=== PATIENT | female | born 1980 | race Caucasian/White ===

== ENCOUNTER 2018-09-09 01:06 | Outpatient (CLI) | payer MEDICAID, SELFPAY ==
--- NOTE | 2018-09-09 11:30 | DI.MAMMO_ITS ---
SYMPTOM/DIAGNOSIS: SCREENING Z12.31 FAMILY H/O BREAST CA BILATERAL SCREENING MAMMOGRAM Mammograms were interpreted according to the usual protocol including computer analysis with CAD system, tomosynthesis and C view imaging. This is a baseline examination. The breasts are composed of heterogeneously dense fibroglandular tissue, breast density category C. On the MLO view in the upper breast, there are areas of increased nodular densities which may represent overlying fibroglandular tissue. Spot compression view is requested for further evaluation. No abnormalities seen in the right breast. No suspicious calcifications in either breast. IMPRESSION: Right breast Category 1-C, negative. Left breast Category 0. Spot compression view and ultrasound requested for further evaluation of superior densities in the left breast MQSA ASSESSMENT OF FINDINGS: Incomplete: Needs additional imaging evaluation. Category 0. Patient will receive a letter notifying them of these results. Bi-RADS category C. The breasts are heterogeneously dense, which may obscure small masses.
== END 2018-09-09 01:26 ==
PROVIDERS: PCP Neuromusculoskeletal Medicine & OMM; Visit Provider Nurse Practitioner Family
DX: Z12.31 Encounter for screening mammogram for malignant neoplasm of breast (principal); Z80.3 Family history of malignant neoplasm of breast; R92.8 Other abnormal and inconclusive findings on diagnostic imaging of breast
CPT/HCPCS: 77063; 77067

== ENCOUNTER 2018-09-19 01:50 | Outpatient (CLI) | payer MEDICAID, SELFPAY ==
--- NOTE | 2018-09-19 10:57 | DI.COMBO_ITS ---
SYMPTOM/DIAGNOSIS: F/U ABNL MAMMO, INCREASED NODULAR DENSITIES ADDITIONAL MAMMOGRAPHIC VIEWS, LEFT BREAST, AND LEFT BREAST ULTRASOUND: Additional mammographic views of the left breast and a left breast ultrasound were interpreted in conjunction. These examinations are obtained for a questionable area of asymmetric density of superior portion of the left breast noted on MLO view of recent mammogram. Additional mammographic views fail to show a discrete mass. Breast ultrasound shows no evidence of a mass or cyst. SUMMARY: No evidence of malignancy, however follow-up unilateral left breast mammogram and if appropriate, ultrasound, are suggested in 6 months for further review. Category 3. Breast density, Category C. MQSA ASSESSMENT OF FINDINGS: Probably benign. Six month follow-up recommended. Category 3. Patient will receive a letter notifying them of these results. Bi-RADS category C. The breasts are heterogeneously dense, which may obscure small masses.
== END 2018-09-19 02:10 ==
PROVIDERS: PCP Neuromusculoskeletal Medicine & OMM; Visit Provider Nurse Practitioner Family
DX: Z12.31 Encounter for screening mammogram for malignant neoplasm of breast (principal); R92.8 Other abnormal and inconclusive findings on diagnostic imaging of breast; N64.59 Other signs and symptoms in breast
CPT/HCPCS: 76642; 77063; 77067

== ENCOUNTER 2021-01-14 16:24 | Outpatient (REF) | payer OTHER, SELFPAY ==
--- NOTE | 2021-01-14 16:00 | PAPFT_PTH ---
PATIENT: Lissy Mcdonald LOC: [facility] U#:[id number] AGE/SX: 40/F ROOM: RE01/14/[address]: JENNI Steel : 1980 BED: DIS: 01/14/2021 SPEC #: [id number] RECD: 01/14/21 16:56 STATUS: KEL REQ #: [id number] SUKHWINDER: 01/14/21 16:[address]: Jonelle Damon DEPT: [facility] Cytology RECD BY: Marya Lara ENTERED: 01/14/21 16:56 SP TYPE: PAPFT OTHR DR: Dave Horner Tissues: 1 - CX/ENDOCX FOR PAP SMEARS Procedures: PAP THIN PREP/UVM Screening HPV DNA PROBE Comments: [id number]
[2021-01-17 14:41] LABS: Chlamydia Result Negative (Negative); GC Result Negative (Negative)
== END 2021-01-14 16:25 | disposition home or self-care (01) ==
LOC: LBN 16:24
PROVIDERS: PCP Neuromusculoskeletal Medicine & OMM; Visit Provider Nurse Practitioner Family
DX: Z20.2 Contact with and (suspected) exposure to infections with a predominantly sexual mode of transmission (principal); Z11.3 Encounter for screening for infections with a predominantly sexual mode of transmission; Z12.4 Encounter for screening for malignant neoplasm of cervix; Z11.51 Encounter for screening for human papillomavirus (HPV)
CPT/HCPCS: 87491; 87591; 88142; 87624

== ENCOUNTER 2021-01-24 02:21 | Outpatient (CLI) | payer OTHER, SELFPAY ==
--- NOTE | 2021-01-24 16:01 | DI.MAMMO_ITS ---
EXAM: MG MAMMO SCREENING CLINICAL HISTORY: screening,z12.39. TECHNIQUE: Bilateral full field digital CC and MLO mammographic images were obtained with 3D tomosyn thesis and utilizing computer aided detection (CAD). COMPARISON: Prior baseline mammogram of August 2018 FINDINGS: The fibroglandular tissue is moderately dense, this decreasing the sensitivity of the mammogram for f inding hidden underlying lesions. In the medial aspect of the left breast there is an asymmetric density located 6 cm in from the nippl e which measures approximately 10 x 10 millimeters. Spot compression views recommended. In the opposite-right breast there is also an asymmetric density located medially measuring approxima tely 8 x 5 millimeters and located 7 cm in from the nipple. This also requires spot compression view s. No malignant-appearing microcalcification groups in this region or elsewhere in either breast. There is no significant architectural distortion nor skin thickening-retraction. IMPRESSION: Moderately dense fibroglandular tissue. Asymmetric densities noted in the medial aspects of both obinna asts. Recommend spot compression views of both breasts and bilateral complete breast ultrasound. Th is patient should undergo bilateral complete breast ultrasound given the above findings, the density of her fibroglandular tissue, and the fact that this patient's mother was diagnosed with breast cance r twice, 1st time at age 39 BI-RADS Category 0 - Assessment Incomplete: Need additional imaging evaluation Breast Density - Category C - Heterogeneously dense Breast density Category C or D implies that the patient has dense breast tissue. Dense breast tissue can make it harder to find cancer on a mammogram. Dense breast tissue is also associated with an incr eased risk of breast cancer. This information about the result of the mammogram report was provided to the patient to raise their awareness. Use this report when you speak with the patient about their risks for breast cancer, which includes their family history. At that time, you may recommend additional screening tests (Ultrasoun d or MRI) as these tests may add significant information. A negative radiographic report should not delay biopsy if a dominant or clinically suspicious mass is present. Up to ten percent of cancers are not identified on mammography. A negative report may reinforce clinical impression. Adenosis and dense breasts may obscure an underlying neoplasm. False positive reports average 6 to 10%. Patient will receive a letter notifying them of these results.
== END 2021-01-24 02:41 ==
PROVIDERS: PCP Neuromusculoskeletal Medicine & OMM; Visit Provider Nurse Practitioner Family
DX: Z12.31 Encounter for screening mammogram for malignant neoplasm of breast (principal); R92.8 Other abnormal and inconclusive findings on diagnostic imaging of breast; Z80.3 Family history of malignant neoplasm of breast
CPT/HCPCS: 77063; 77067

== ENCOUNTER 2021-02-02 01:39 | Outpatient (CLI) | payer OTHER, SELFPAY ==
--- NOTE | 2021-02-02 | DI.US_ITS ---
Exam(s) US BREAST LT COMPLETE US BREAST RT COMPLETE MG MAMMO SCREEN CALL BACK BI EXAM: MG MAMMO SCREEN CALL BACK BI and bilateral U/S breast complete CLINICAL HISTORY: F/U MAMMO, LT BREAST ASYMMETRIC DENSITY,,RT BREAST ASYMMETRIC DENSITY. TECHNIQUE: Craniocaudal and mediolateral oblique Full Field Digital Mammography views of the bilater al breast with Computer Aided Diagnosis followed by Tomosynthesis and bilateral breast ultrasound. COMPARISON: Comparison with prior examinations. FINDINGS: Mammography/Tomosynthesis: Masses/Architectural Distortion: None seen. Microcalcifictions: No suspicious pleomorphic-type are seen. Skin Thickening/Nipple Retraction: None. Bilateral breast US: Bilateral complete breast ultrasounds were performed. Echotexture: Normal appearance of the glandular tissue. Shadowing: No suspicious foci. Cyst: There is a 0.6 x 0.4 x 0.5 cm cyst at the 3 o'clock position of the left breast 2 cm from the n ipple. Solid lesions: None seen. Ductal dilation: None. IMPRESSION: 1. No evidence of malignancy is noted. 2. Unless there is more urgent need, follow-up screening mammography is recommended, as per [place] [employer] guidelines. 3. The findings were discussed with the patient on the date of the examination. BI-RADS Category 1 - Negative Breast Density - Category C - Heterogeneously dense Breast density Category C or D implies that the patient has dense breast tissue. Dense breast tissue can make it harder to find cancer on a mammogram. Dense breast tissue is also associated with an incr eased risk of breast cancer. This information about the result of the mammogram report was provided to the patient to raise their awareness. Use this report when you speak with the patient about their risks for breast cancer, which includes their family history. At that time, you may recommend additional screening tests (Ultrasoun d or MRI) as these tests may add significant information. A negative radiographic report should not delay biopsy if a dominant or clinically suspicious mass is present. Up to ten percent of cancers are not identified on mammography. A negative report may reinforce clinical impression. Adenosis and dense breasts may obscure an underlying neoplasm. False positive reports average 6 to 10%. Patient will receive a letter notifying them of these results.
== END 2021-02-02 01:59 ==
PROVIDERS: PCP Neuromusculoskeletal Medicine & OMM; Visit Provider Neuromusculoskeletal Medicine & OMM
DX: Z12.31 Encounter for screening mammogram for malignant neoplasm of breast (principal); R92.8 Other abnormal and inconclusive findings on diagnostic imaging of breast; N60.02 Solitary cyst of left breast; N60.81 Other benign mammary dysplasias of right breast
CPT/HCPCS: 76642; 77063; 77067

== ENCOUNTER 2021-02-21 01:57 | Outpatient (CLI) | payer OTHER, SELFPAY ==
[2021-02-21 11:46] LABS: Source Nasal/Nares
[2021-02-21 21:03] LABS: COVID-19 PCR Negative (Negative)
== END 2021-02-21 01:58 | disposition home or self-care (01) ==
LOC: LBO 01:58
PROVIDERS: PCP Neuromusculoskeletal Medicine & OMM; Visit Provider Obstetrics & Gynecology
DX: Z20.822 Contact with and (suspected) exposure to COVID-19 (principal); Z01.818 Encounter for other preprocedural examination
CPT/HCPCS: 87635

== ENCOUNTER 2021-02-21 10:54 | Outpatient (CLI) | payer OTHER, SELFPAY ==
[2021-02-21 12:07] LABS: Abs Immature Grans 0.14 10^3/uL (0.0-0.06); Absolute Basophil Count 0.06 10^3/uL (0.0-0.2); Absolute Eosinophil Count 0.24 10^3/uL (0.0-0.7); Absolute Lymphocyte Count 2.42 10^3/uL (1.2-3.4); Absolute Monocyte Count 0.64 10^3/uL (0.1-0.8); Absolute Neutrophil Count 5.28 10^3/uL (1.2-6.7); Basophils % 0.7; Eosinophils % 2.7; HCT 37.2 % (36.0-46.0); HGB 12.7 g/dL (11.2-15.7); Immature Grans % 1.6; Lymphocytes % 27.6; MCH 31.1 pg (27.0-33.0); MCHC 34.1 % (32.0-36.0); MPV 10.3 fL (8.0-11.0); Monocytes % 7.3; Neutrophils % 60.1; Nucleated RBC 0 %; Platelet Count 302 10^3/uL (130-400); RBC 4.09 10^6/uL (3.93-5.22); RDW 12.7 % (11.7-14.6); RDW-SD 42.1 fL; WBC 8.78 10^3/uL (4.4-10.8)
== END 2021-02-21 10:55 | disposition home or self-care (01) ==
LOC: LBO 10:55
PROVIDERS: Obstetrics & Gynecology; PCP Neuromusculoskeletal Medicine & OMM; Visit Provider Student in an Organized Health Care Education/Training Program
DX: D25.9 Leiomyoma of uterus, unspecified (principal); Z01.818 Encounter for other preprocedural examination; Z01.812 Encounter for preprocedural laboratory examination
CPT/HCPCS: 36415; 86850; 86900; 86901; 85025

== ENCOUNTER 2021-02-23 06:14 | Inpatient (IN) | payer OTHER, SELFPAY ==
[2021-02-23] VITALS (24 sets, daily range): BP systolic 103–122; BP diastolic 54–82; PULSE 69–94; RESP 9–20; TEMP 36.2–37.8; O2SAT 95–100; BMI 32.0
--- NOTE | 2021-02-23 07:03 | W.ANESPRE ---
General Info Date of Service Date Performed: 02/23/21 Height: 5 ft 5 in Weight: 87.3 kg Body Mass Index (BMI): 32.0 Surgical Procedure: Operation Date: 02/23/21 07:40 Proposed Procedures Side Surgeon p Hysterectomy Vaginal Laparoscopic Assist, RHODA SALPINGECTOMY, POSSIBLE VIC, CYSTO Nubia DO [place] Meds Allergies and Home Medications Allergies Allergy/AdvReac Type Severity Reaction Status Date / Time acetaminophen [From Vicodin] Allergy Severe Hives Unverified 02/23/21 06:32 gluten Allergy Severe Other (See Verified 02/23/21 06:34 Comment) hydrocodone bitartrate Allergy Severe Hives Unverified 02/23/21 06:32 [From Vicodin] Home Medication Medication Instructions Recorded trazodone 50 mg PO HS PRN 07/26/16 Buspirone HCl 5 mg PO BID tab-cap 10/22/17 acetaminophen 1,000 mg PO PRN PRN 02/19/18 escitalopram oxalate 20 mg tablet 20 mg PO DAILY 01/14/21 vitamin B complex 1 tab PO DAILY 01/14/21 clonazepam 0.5 mg tablet 0.5 mg PO DAILY PRN tab 02/15/21 Current Visit Medications: Current Medications Generic Name Dose Route Start Last Admin Trade Name Freq PRN Reason Stop Dose Admin Ringer's Solution 1,000 mls @ 125 mls/hr 02/23/21 06:00 IV 03/24/21 23:59 INFUSION MIKHAIL Cefazolin Sodium/Dextrose 2 gm in 50 mls @ 100 mls/hr 02/23/21 06:00 Ancef Duplex IVPB 02/23/21 16:00 PREOP MIKHAIL IV Miscellaneous Supplies 1 each 02/23/21 06:00 Iv Access IV 03/24/21 23:59 DIRECTED MIKHAIL Sodium Chloride 0 ml 02/23/21 06:00 Normal Saline Flush 10 Ml Syr IV 03/24/21 23:59 PRN PRN Sodium Chloride 0 ml 02/23/21 06:00 Normal Saline 10 Ml Vial IJ 03/24/21 23:59 DIRECTED PRN Sterile Water 0 ml 02/23/21 06:00 Water,Injection,Sterile 10 Ml Vial IJ 03/24/21 23:59 DIRECTED PRN Allergy/Medication Comments:: Patient tolerates Tylenol and takes as needed at home without issues, reports sensitivity to hydrocodone PFSH Active Problems Active Problems: Problem Status Onset Code Family history of breast cancer 10/22/17 Z80.3 Celiac disease 10/22/17 K90.0 Anxiety 10/22/17 F41.9 Fibromyalgia M79.7 Abnormal uterine bleeding N93.9 Fibroid uterus D25.9 Medical History Medical History Abnormal uterine bleeding Fibroid uterus Fibromyalgia Panic disorder per pt. Surgical History Surgical History (Updated 02/23/21 @ 06:38 by Samreen Cortez) Hx of wisdom tooth extraction Tobacco Smoking/Tobacco Use Status: Never Alcohol Alcohol Intake: current Alcohol intake frequency: a few times a week Alcohol type: wine Substance Use Substance use: Daily Substance use type: marijuana Details: marijuana: t-1, half of a joint. alcohol: t-1 Vital Signs and Lab Results Vital Signs Most Recent Vital Signs in EMR: Most Recent Vital Signs Temp Pulse Resp BP Pulse Ox 36.7 C 79 16 117/82 98 02/23/21 06:42 02/23/21 06:42 02/23/21 06:42 02/23/21 06:42 02/23/21 06:42 Lab Results Blood Type / Crossmatch: Patient ABO/Rh O Positive 02/21/21 11:14 02/21/21 Antibody Screen Negative 02/21/21 11:14 02/21/21 Complete Blood Count: White Blood Count 8.78 10^3/uL (4.4-10.8) 02/21/21 11:14 02/21/21 Red Blood Count 4.09 10^6/uL (3.93-5.22) 02/21/21 11:14 02/21/21 Hemoglobin 12.7 g/dL (11.2-15.7) 02/21/21 11:14 02/21/21 Hematocrit 37.2 % (36.0-46.0) 02/21/21 11:14 02/21/21 Platelet Count 302 10^3/uL (130-400) 02/21/21 11:14 02/21/21 Complete Metabolic Panel: No Data to Display Liver Function Panel: No Data to Display Coagulation Panel: No Data to Display Cardiac Panel: No Data to Display Arterial Blood Gas: No Data to Display Venous Blood Gas: No Data to Display Pancreas Panel: No Data to Display Thyroid Panel: No Data to Display Infectious Disease: Coronavirus (COVID-19)(PCR) Negative (Negative) 02/21/21 09:58 02/21/21 Coronavirus 2019 Source Nasal/nares 02/21/21 09:58 02/21/21 Blood Cultures: No Data to Display Toxicology Panel: No Data to Display Panel: No Data to Display Anesthesia Assessment and Plan Anesthesia History Personal History: No History of Anesthesia Complications Family History: No Family History of Anesthesia Complications Exercise Tolerance Exercise Tolerance: Metabolic Equivalents>4 Pertinent Negatives Pertinent Negatives: No Symptoms of GERD, No Major Cardiovascular Symptoms or Complaints, No Major Pulmonary Symptoms or Complaints (Childhood asthma +snores ) and No History of CVA/TIA Cardiac & Pulmonary Exam Cardiac Exam: Normal S1/S2 Heart Sounds Pulmonary Exam: Clear Bilateral Breath Sounds Airway Exam Known Difficult Airway: No Mallampati Class: 4 Mouth Opening: Normal (> 3cm) Thyromental Distance: Less than 3 cm Neck Range of Motion: Full ROM and Other (Patient reports moderate discomfort turning head [id number], follows up with physical therapy) Neck Circumference: Normal Teeth Condition: Normal Dentition ASA Classification ASA Score: ASA 2 Emergency Case?: No NPO Status NPO Status: NPO Clears >2 hours, Solids >8 hours Status Status: Negative HCG Anesthesia Plan Resuscitation Status: Full Code Anesthesia Technique: General Anesthesia Airway Planned: Endotracheal Tube Pain Management: Intrathecal Analgesia Monitors Used: Standard Monitors
[2021-02-23] MEDS: Lactated Ringers 1,000 ML 125 ML IV ×3 (07:05→16:38)
[2021-02-23] MEDS: ceFAZolin 2 GM/50 ML BAG IVPB (08:09)
[2021-02-23] MEDS: Bupivacaine 0.5% Pres-Free 30 ML VIAL (08:30)
--- NOTE | 2021-02-23 09:36 | UTER_PTH ---
PATIENT: Lissy Mcdonald LOC: U#:[id number] AGE/SX: 40/F ROOM: 216 RE02/23/[address]: Nubia Coburn DO : 1980 BED: A DIS: 02/25/2021 SPEC #: [id number] RECD: 02/23/21 11:50 STATUS: SOUT REQ #: [id number] SUKHWINDER: 02/23/21 09:[address]: Nubia Coburn DEPT: Surgical Specimen RECD BY: Marya Lara ENTERED: 02/23/21 11:51 SP TYPE: UTER OTHR DR: Dave Horner Tissues: 1 - UTERUS W OR W/O OVARIES(NOT TUMOR/PROLAPSE) Procedures: GROSS AND MICRO LEVEL 5 Comments: [id number]
--- NOTE | 2021-02-23 10:18 | W.PM.OP ---
Date of service: 02/23/21 Time of Service: 10:18 Operative Note Operative Note DATE OF PROCEDURE: 02/23/21 PRE-OP DIAGNOSIS: Symptomatic fibroid uterus, 16 to 18 weeks size PROCEDURE: Exam under anesthesia, total abdominal hysterectomy with bilateral salpingectomy SURGEON: Nubia Coburn REFINERY OPERATOR HELPER CRUDE UNIT: Shaunna Sanchez ANESTHESIA TYPE: General LMA/ETT and Spinal Refer to Anesthesia Record ESTIMATED BLOOD LOSS: 200 PATHOLOGY: other (Uterus, cervix, bilateral fallopian tube) COMPLICATIONS: None Patient was transported to: PACU Patient's condition: stable Indications: Symptomatic fibroid uterus Findings: Normal-appearing ovaries, normal-appearing fallopian tubes, 16 to 18-week size bulky fibroid uterus with multiple submucosal, and intramural fibroids Procedure Description: Patient was taken to the operating room with an IV running. She was placed in the seated position and spinal anesthesia administered for postoperative pain management. She was then placed in dorsal supine position and endotracheal intubation performed per anesthesia with ease. At this point exam under anesthesia was performed and uterus was found to be approximately 3 cm below the umbilicus, with minimal descent in a relaxed state. Due to this fact, the decision was made to perform a total abdominal hysterectomy rather than laparoscopic approach due to the size and poor descent. At this point she was placed in the dorsal supine position and after vaginal prep and Malloy catheter was inserted, patient was prepped and draped in the usual sterile fashion. Infiltration of half percent Marcaine along the Pfannenstiel skin incision site was performed with 20 mL of local anesthetic. A Pfannenstiel skin incision was made and carried down to the underlying fascia. The fascia was then incised in a transverse direction and fascia peeled away from the rectus muscles. The rectus muscles were identified split in the midline and . The peritoneum was then identified tented up and entered sharply and the peritoneal incision was then extended superiorly and inferiorly. This allowed exposure of the abdominal contents and bulky fibroid uterus. Uterus was found to be significantly enlarged. Fallopian tubes and ovaries were normal. At this point the uterus was elevated out of the pelvis and attention turned to the left round ligament which was suture-ligated and transected allowing access to the retroperitoneal space. The bladder flap was created anteriorly with sharp meticulous dissection. The left fallopian tube was then transected and suture-ligated allowing to fall away from the ovary. The utero-ovarian ligament was then identified, transected and suture ligated. Similar procedure was carried out on the right round ligament exposing the right retroperitoneal space. Bladder flap was continued and bladder pushed well below the circumflex. Right fallopian tube was then transected and suture-ligated and the right ovarian ligament was also transected and suture ligated. In a systematic fashion uterine arteries were identified, clamped, transected and ligated and found to be hemostatic. After uterine pedicles were cleared away from the lower uterine segment the anterior vaginal endopelvic fascia was elevated and entered sharply. With Zeppelin clamps the cervical vaginal interface was clamped, transected, and ligated. This allowed delivery of the uterus, cervix, and bilateral fallopian tubes. The vaginal cuff was then closed using 0 Vicryl suture in a running locked fashion. There is one area at the left corner that was not hemostatic which was suture-ligated. The abdomen was then irrigated with copious amounts of normal saline and all pedicles inspected and found to be hemostatic. At this point all instrumentation was removed and fascial incision closed using 0 Vicryl suture. Subcutaneous tissue was irrigated with copious amounts of normal saline. Subcutaneous tissue reapproximated with 3-0 Vicryl suture in a simple interrupted fashion. Skin incision was closed using 4-0 Monocryl in a subcuticular fashion and Steri-Strips and sterile dressing were placed. Patient awoke from anesthesia with ease and was taken to recovery room in stable condition with a Malloy catheter draining very mildly blood-tinged urine. Complications: None apparent EBL: 200 mL Pathology: Uterus, cervix, bilateral fallopian tubes for examination Drains: Malloy catheter in place
[2021-02-23] MEDS: Albuterol/Ipratropium 3 ML UPD VIAL (10:30)
[2021-02-23] MEDS: Naloxone 0.4 MG/ML VIAL IVP ×2 (11:30→11:36)
--- NOTE | 2021-02-23 12:06 | W.ANESPOSTOP ---
Postoperative Evaluation Date, Time and Location Date Performed: 02/23/21 Time Performed: 12:06 Patient Location: PACU Vital Signs Most Recent Imported Vital Signs: Most Recent Vital Signs Temp Pulse Resp BP Pulse Ox 36.5 C 74 9 L 112/61 99 02/23/21 11:54 02/23/21 11:54 02/23/21 11:54 02/23/21 11:54 02/23/21 11:54 Pain Score Most Recent Pain Score: Most Recent Pain Score Pain Level [Abdomen] 1 02/23/21 10:45 Pain Level 8 02/23/21 11:54 Assessment Mental Status: Awake (Alert & Oriented to Patient Baseline) Airway and Respiratory Function: Patent airway with normal (patient baseline) respiratory exam Cardiovascular Function: Hemodynamically Stable Hydration Status: Adequately Hydrated Nausea & Vomiting: No Nausea or Vomiting Pain: Pain is Moderate or Severe (IV Tylenol intitiated prior to transfer to floor.) Postoperative Pain Management: Ongoing pain, patient will be managed as an inpatient Peripheral Nerve Block: Patient did not receive a nerve block
[2021-02-23] MEDS: ACETAMINOPHEN 1,000 MG/100 ML BTL 400 MG IVPB (12:10)
[2021-02-23] MEDS: diphenhydrAMINE 50 MG/ML VIAL 12.5 MG IVP (12:50)
[2021-02-23] MEDS: diphenhydrAMINE 25 MG CAP PO ×2 (13:24→20:14)
[2021-02-23] MEDS: Ketorolac 30 MG/ML VIAL 15 MG IVP ×2 (15:49→21:44)
[2021-02-23] MEDS: Normal Saline Flush 10 ML SYR IV ×2 (15:50→21:45)
--- NOTE | 2021-02-23 16:08 | W.PM.PROGNOT ---
Date of Service Date of service: 02/23/21 Time of Service: 16:08 Assessment and Plan Assessment and plan (1) S/P VIC (total abdominal hysterectomy): Status: Acute Assessment and plan: Postoperative day #0 status post total abdominal hysterectomy with bilateral salpingectomy. Doing well. CBC in the morning. Malloy out in the morning. Increase activity, diet, continue incentive spirometer. Anticipate discharge home in the next 24 to 48 hours. Subjective Subjective Patient reports: no new complaints, pain is less, tolerating liquids well, tolerating a regular diet and afebrile; denies shortness of breath Interval history since last seen: Patient seen postoperative day #1. She is doing well. Surgery was discussed. Vital signs are stable. Urine output is brisk. Pain medication written for the evening. CBC ordered for the morning. Anticipate discharge in the next 24 to 48 hours. Exam Const General: cooperative, healthy appearing, comfortable and no acute distress Eyes General: appearance normal, both eyes and all related structures Neck Neck: normal visual inspection Thyroid: thyroid normal Resp Effort & Inspection: normal respiratory effort Cardio Rate: regular rate Rhythm: regular rhythm GI Inspection: normal to inspection Palpation: not firm and no guarding Objective Last Vital Signs Temp 97.5 F L 02/23/21 15:39 Pulse 94 H 02/23/21 15:39 Resp 17 02/23/21 15:39 BP 122/65 02/23/21 15:39 Pulse Ox 97 02/23/21 15:39
[2021-02-23] MEDS: clonazePAM 0.5 MG TAB PO (18:08)
[2021-02-23] MEDS: Docusate Sodium 100 MG CAP PO (20:12)
[2021-02-23] MEDS: busPIRone 5 MG TAB PO (20:13)
[2021-02-23] MEDS: oxyCODONE 5 mg/Acetaminophen 325 mg TAB 1 TAB PO (20:14)
[2021-02-24] MEDS: Lactated Ringers 1,000 ML 125 ML IV (00:26)
[2021-02-24 02:10] VITALS: RESP 17
[2021-02-24 03:30] VITALS: RESP 18
[2021-02-24 03:33] VITALS: BP 114/70; PULSE 80; RESP 18; TEMP 37.1; O2SAT 95
[2021-02-24] MEDS: Ketorolac 30 MG/ML VIAL 15 MG IVP ×2 (04:30→11:14)
[2021-02-24 04:38] VITALS: RESP 18
[2021-02-24 07:05] VITALS: BP 132/83; PULSE 86; TEMP 36.5; O2SAT 93
[2021-02-24 07:23] LABS: Abs Immature Grans 0.04 10^3/uL (0.0-0.06); Absolute Basophil Count 0.04 10^3/uL (0.0-0.2); Absolute Eosinophil Count 0.13 10^3/uL (0.0-0.7); Absolute Lymphocyte Count 1.14 10^3/uL (1.2-3.4); Absolute Monocyte Count 0.61 10^3/uL (0.1-0.8); Absolute Neutrophil Count 6.61 10^3/uL (1.2-6.7); Basophils % 0.5; Eosinophils % 1.5; HGB 10.6 g/dL (11.2-15.7); Immature Grans % 0.5; Lymphocytes % 13.3; MCH 30.7 pg (27.0-33.0); MCHC 33.1 % (32.0-36.0); MCV 92.8 fL (80-95); MPV 10.2 fL (8.0-11.0); Monocytes % 7.1; Neutrophils % 77.1; Nucleated RBC 0 %; Platelet Count 225 10^3/uL (130-400); RBC 3.45 10^6/uL (3.93-5.22); RDW 12.5 % (11.7-14.6); RDW-SD 42.1 fL; WBC 8.57 10^3/uL (4.4-10.8)
[2021-02-24 07:37] VITALS: BP 116/77; PULSE 90; RESP 16; TEMP 37; O2SAT 96
--- NOTE | 2021-02-24 08:06 | PGE_ITS ---
Date of Service Date of service: 02/24/21 Time of Service: 08:06 Assessment and Plan Assessment and plan (1) S/P VIC (total abdominal hysterectomy): Status: Acute Assessment and plan: Postoperative day #1 status post total abdominal hysterectomy with bilateral salpingectomy. Doing well. Will increase her ambulation today. Malloy catheter out. Saline lock IV. Oral pain medication. Regular diet. Would anticipate discharge home later today, or early tomorrow based on activity levels. Encouragement given. Patient will continue to use I- S. She will continue use compression stockings while in bed, off all ambulatory. Subjective Subjective Patient reports: still having pain, tolerating a regular diet and flatus; denies diarrhea, vomiting, shortness of breath and fever Interval history since last seen: Patient seen and examined this morning. She is doing well. She is concerned about her pain and increased pain with movement. She is worried that she will somewhat injure herself, however we discussed the fact that pain is normal. Will alternate her Motrin and Percocet throughout the day today. Ambulation will be necessary. Malloy catheter will be removed and IV will be saline locked. We did review her surgical procedure yesterday. Overall, she is doing very well postoperative day #1. She is tolerating regular diet, has stable vital signs, and is passing gas Exam Const General: cooperative, healthy appearing, comfortable and no acute distress Orientation: alert and oriented x3 Eyes General: appearance normal, both eyes and all related structures Resp Effort & Inspection: normal respiratory effort Auscultation: clear to auscultation bilaterally Cardio Rate: regular rate Rhythm: regular rhythm GI Inspection: normal to inspection and incision (Clean, dry, intact. Dressing removed. Steri-Strips in place) Palpation: soft, not firm and no guarding Auscultation: normal bowel sounds Skin General skin exam: no rashes or lesions noted Extrem General: normal to inspection, no clubbing, cyanosis or edema, no calf tenderness, clubbing, cyanosis and edema Objective Last Vital Signs Temp 98.6 F 02/24/21 07:37 Pulse 90 02/24/21 07:37 Resp 16 02/24/21 07:37 BP 116/77 02/24/21 07:37 Pulse Ox 96 02/24/21 07:37 Laboratory Results - last 24 hr 05/27/21 06:03 WBC 8.57 RBC 3.45 L Hgb 10.6 L D Hct 32.0 L MCV 92.8 MCH 30.7 MCHC 33.1 RDW 12.5 Plt Count 225 MPV 10.2 Immature Gran % 0.5 Neutrophils % 77.1 Lymphocytes % 13.3 Monocytes % 7.1 Eosinophils % 1.5 Basophils % 0.5 Nucleated RBC % 0 Absolute Neutrophils 6.61 Absolute Lymphocytes 1.14 L Absolute Monocytes 0.61 Absolute Eosinophils 0.13 Absolute Basophils 0.04
[2021-02-24] MEDS: oxyCODONE 5 mg/Acetaminophen 325 mg TAB PO ×3 (08:13→22:40)
[2021-02-24] MEDS: Docusate Sodium 100 MG CAP PO ×2 (08:13→20:23)
[2021-02-24] MEDS: Escitalopram 20 MG TAB PO (08:15)
[2021-02-24] MEDS: busPIRone 5 MG TAB PO ×2 (08:15→20:22)
[2021-02-24] MEDS: clonazePAM 0.5 MG TAB PO (13:44)
--- NOTE | 2021-02-24 15:05 | CHAPLAIN ---
Lissy was resting in bed, wrapped in her own blanket. I explained my role and offered support. Lissy said she was fine and likely will go home soon.
--- NOTE | 2021-02-24 15:11 | W.PM.PROGNOT ---
Date of Service Date of service: 02/24/21 Time of Service: 15:11 Assessment and Plan Assessment and plan (1) S/P VIC (total abdominal hysterectomy): Status: Acute Assessment and plan: Postoperative day #1. Intra-abdominal wall pain. Some nausea associated. Clinically stable. Will have aggressive pain management through the night, continue regular diet, anticipate discharge if stable Subjective Subjective Patient reports: voiding w/o difficulty, flatus, vomiting and afebrile; denies shortness of breath and fever Interval history since last seen: Patient was seen and examined this afternoon. She had been up in a chair. She did have significantly increased amount of pain at the incisional site. She continues to pass gas. She did have an episode of anxiety with elevation in blood pressure followed by nausea and vomiting. At this point, she is not ready to be discharged home due to pain control issues. We will continue oral pain medication and assist her in ambulation. Anticipation would be for discharge home tomorrow if pain is under better control. Exam Const General: cooperative, healthy appearing and no acute distress Eyes General: appearance normal, both eyes and all related structures Resp Effort & Inspection: normal respiratory effort Cardio Rate: regular rate GI Inspection: normal to inspection and incision (Clean, dry, and) Palpation: soft, not firm, no guarding and not rigid Auscultation: normal bowel sounds Extrem General: no clubbing, cyanosis or edema Objective Last Vital Signs Temp 98.6 F 02/24/21 07:37 Pulse 90 02/24/21 07:37 Resp 16 02/24/21 07:37 BP 116/77 02/24/21 07:37 Pulse Ox 96 02/24/21 07:37 Laboratory Results - last 24 hr 02/24/21 06:03 WBC 8.57 RBC 3.45 L Hgb 10.6 L D Hct 32.0 L MCV 92.8 MCH 30.7 MCHC 33.1 RDW 12.5 Plt Count 225 MPV 10.2 Immature Gran % 0.5 Neutrophils % 77.1 Lymphocytes % 13.3 Monocytes % 7.1 Eosinophils % 1.5 Basophils % 0.5 Nucleated RBC % 0 Absolute Neutrophils 6.61 Absolute Lymphocytes 1.14 L Absolute Monocytes 0.61 Absolute Eosinophils 0.13 Absolute Basophils 0.04
--- NOTE | 2021-02-24 18:10 | INITIAL_ITS ---
- If Service Date Differs Date of service: 02/24/21 Time of Service: 18:10 Care Management Initial Assess REASON FOR HOSPITALIZATION:: S/P Total Abdominal Hysterectomy PAST MEDICAL HISTORY/PAST SURGICAL HISTORY:: Abnormal uterine bleeding, fibroid uterus, fibromyalgia, panic disorder, wisdom tooth extraction, VIC PREVIOUS FUNCTIONAL STATUS/SOCIAL/FAMILY SUPPORTS:: Lissy resides in [place] with her , Tadeo. She is independent at baseline in the community. ADVANCE DIRECTIVES:: None on file at [facility]. Has patient been provided with info about the portal/API?: No Did the patient sign up for the portal?: No CODE STATUS:: Full Code INSURANCE COVERAGE / FINANCIAL ISSUES:: Medicaid. [facility] CURRENT HOME/COMMUNITY SERVICES/EQUIPMENT:: None, currently. PRIMARY CARE PHYSICIAN:: Dave Horner POTENTIAL DISCHARGE NEEDS:: Follow up appointments. PATIENT/FAMILY EDUCATION NEEDS:: Review discharge instructions, discuss Ask Me Three. ANTICIPATED BARRIERS TO DISCHARGE:: None identified. TRANSPORTATION:: Via private vehicle with her . PLAN:: Lissy will return home when ready per MD. She will follow up with her PCP and plan of care as prescribed. She will transport via private vehicle with her .
[2021-02-24] MEDS: traZODone 50 MG TAB PO (20:22)
[2021-02-24] MEDS: Ibuprofen 600 MG TAB PO (20:23)
[2021-02-24] MEDS: Ondansetron 4 MG/2 ML VIAL IVP (22:51)
[2021-02-24] MEDS: Normal Saline Flush 10 ML SYR IV (22:53)
[2021-02-25 01:52] VITALS: BP 118/74; PULSE 68; RESP 16; TEMP 36.3; O2SAT 100
[2021-02-25 03:48] VITALS: BP 101/63; PULSE 63; RESP 17; TEMP 36.2; O2SAT 98
[2021-02-25 07:28] VITALS: BP 117/75; PULSE 76; RESP 18; TEMP 36.9; O2SAT 97
[2021-02-25] MEDS: Escitalopram 20 MG TAB PO (08:01)
[2021-02-25] MEDS: busPIRone 5 MG TAB PO (08:01)
[2021-02-25] MEDS: Docusate Sodium 100 MG CAP PO (08:01)
[2021-02-25] MEDS: oxyCODONE 5 mg/Acetaminophen 325 mg TAB PO (08:01)
--- NOTE | 2021-02-25 08:44 | W.PM.PROGNOT ---
Date of Service Date of service: 02/25/21 Time of Service: 08:44 Assessment and Plan Assessment and plan (1) S/P VIC (total abdominal hysterectomy): Status: Acute Assessment and plan: Postoperative day #2 status post total abdominal hysterectomy with bilateral salpingectomy due to symptomatic large fibroid uterus. Doing well. Pain under better control today. Voiding without difficulty. Tolerating a regular diet. Passing flatus. Will discharge home today. Prescriptions for Percocet, Motrin, Colace will be sent to the pharmacy. Follow-up in the office in 2 weeks. Restrictions discussed. Subjective Subjective Patient reports: no new complaints, feels better, pain is less, tolerating a regular diet, voiding w/o difficulty and flatus; denies nausea, vomiting and fever Interval history since last seen: Patient seen and examined this morning. She had a better night. She has better pain control and has been more aggressive about asking for pain medications. She has been ambulatory. She is voiding without difficulty. She is passing flatus. She is tolerating a regular diet without. We had a 30-minute conversation regarding postoperative restrictions, and postoperative progression. Exam Const General: cooperative, healthy appearing, comfortable and no acute distress Nutritional Appearance: average body habitus Eyes General: appearance normal, both eyes and all related structures Neck Neck: normal visual inspection Thyroid: thyroid normal Resp Effort & Inspection: normal respiratory effort Auscultation: clear to auscultation bilaterally Cardio Rate: regular rate Rhythm: regular rhythm GI Inspection: normal to inspection and incision (Clean, dry, intact. Steri-Strips in place) Palpation: soft, not firm, no guarding, not rigid and tender Auscultation: normal bowel sounds Skin General skin exam: no rashes or lesions noted Extrem General: no clubbing, cyanosis or edema and no calf tenderness Objective Last Vital Signs Temp 98.4 F 02/25/21 07:28 Pulse 76 02/25/21 07:28 Resp 18 02/25/21 07:28 BP 117/75 02/25/21 07:28 Pulse Ox 97 02/25/21 07:28
--- NOTE | 2021-02-25 09:15 | DSE_ITS ---
Date of service: 02/25/21 Time of Service: 09:16 DS: Diagnosis Discharge Diagnosis (1) S/P VIC (total abdominal hysterectomy): Status: Acute Discharge Plan Disposition Patient Disposition: HOME Condition: Good Discharge Details Reason For Visit: LUIS FS POST TOTAL ABDOMINAL HYSTERECTOMY Admit Date/Time: 02/23/21 06:14 Admit Provider: Nubia Coburn Attending Provider: Nubia Coburn Primary Care Provider: Dave [facility] Hospital Course: Patient underwent a total abdominal hysterectomy with bilateral salpingectomy. She had an uncomplicated postoperative course. She was discharged home, postoperative day #2, ambulating, tolerating regular diet, tolerating oral pain medication. She had stable vital signs. She had a postoperative hemoglobin of 10.6 for which she was asymptomatic. She will be seen back in the office in 2 weeks time Home Meds and New Rx's Prescriptions: New oxycodone-acetaminophen 5-325 mg Tablet 1 tab PO Q4H PRN PRNQty: 20 RF: 0 docusate sodium [Colace] 100 mg Capsule 100 mg PO BID Qty: 30 RF: 1 ibuprofen 600 mg Tablet 800 mg PO Q6H PRN PRNQty: 60 RF: 1 oxycodone-acetaminophen [Percocet] 5-325 mg tablet 1 tab PO Q4H PRNQty: 20 RF: 0 Continued escitalopram oxalate 20 mg tablet 20 mg PO DAILY RF: 0 vitamin B complex [B Complex-Vitamin B12] Tablet 1 tab PO DAILY RF: 0 Buspirone HCl 5 MG tablet 5 mg PO BID RF: 0 trazodone 50 MG tablet 50 mg PO HS PRNRF: 0 clonazepam 0.5 mg tablet 0.5 mg PO DAILY PRNRF: 0 acetaminophen 500 MG tablet 1,000 mg PO PRN PRNRF: 0 Discharge Instructions Stand Alone Forms: DSU Post Gynecology Surgery Activity:: Pelvic rest Equipment/Supplies:: No Equipment Needed Diet:: As Tolerated Discharge Orders Discharge Orders: Discharge Order (Routine); Ordered 02/25/21 Ordered By: Nubia Coburn DS: Summary Time Spent with Patient providing and/or coordinating discharge services: Greater than 30 minutes Specific discharge activities: No heavy lifting, pelvic rest Status at Discharge Functional status at discharge: independent ambulation Overall status at discharge: patient is not back to baseline Mental Status: mental status grossly normal Speech and Movement: speech and movement normal Mood: congruent mood Affect: normal affect Exam Narrative Exam Narrative: See physical exam from progress note dated 02/25/2021 Psych Mental Status: mental status grossly normal Speech and Movement: speech and movement normal Mood: congruent mood Affect: normal affect DS: Data Vitals/I&O Vitals and I&O: Vital Signs Temperature 98.4 F 02/25/21 07:28 Temperature Source Tympanic 02/25/21 07:28 Pulse 76 02/25/21 07:28 Pulse Rhythm Regular 02/25/21 01:50 Respiratory Rate 18 02/25/21 07:28 Respiratory Effort Non-Labored 02/25/21 01:50 Respiratory Depth Normal 02/25/21 01:50 Respiratory Pattern Normal 02/25/21 01:50 Blood Pressure 117/75 02/25/21 07:28 Pulse Oximetry 97 02/25/21 07:28 Respiratory End-tidal CO2 45 02/23/21 10:42 Oxygen Delivery Method Room Air 02/25/21 07:28 Oxygen Flow Rate 0 02/25/21 07:28 Pain Level 3 02/25/21 08:01 Intake & Output 02/24/21 02/24/21 02/25/21 11:59 23:59 11:59 Intake Total 1485 / 1735 250 / 1735 Output Total 2750 / 3050 300 / 3050 900 / 900 Balance -1265 / -1315 -50 / -1315 -900 / -900 Intake: IV 985 / 995 10 / 995 Oral 500 / 740 240 / 740 Output: Urine 2750 / 3050 300 / 3050 900 / 900 Other: Urine Color Yellow Light Meri Urine Appearance Clear Clear Urine Odor Normal Comment patient reports that she does not have any vaginal discharge/bleeding. Voiding Methods Toilet Toilet PFSH Medical History Abnormal uterine bleeding Fibroid uterus Fibromyalgia Panic disorder per pt. Surgical History Hx of wisdom tooth extraction S/P VIC (total abdominal hysterectomy) VIC, B/L salpingectomy due to uterine fibroids 02/23/2021 Family History Mother Breast cancer 40 Father No problems noted. Grandfather Diabetes paternal Maternal Aunt Thyroid disorder maternal Maternal Cousin Celiac disease Social History Smoking/Tobacco Use Status: Never Smoking risk assessment performed?: Yes Alcohol Intake: current Alcohol Intake frequency: a few times a week Alcohol type: wine Drug use: Daily Substance use type: marijuana Details: marijuana: t-1, half of a joint. alcohol: t-1 Current gender identity: female Do you feel safe at home: Yes Do you feel safe in your relationship?: Yes
== END 2021-02-25 11:00 | disposition home or self-care (01) | DRG 743 ==
LOC: PDS 12:26 → MS 12:52
PROVIDERS: Admitting Provider Obstetrics & Gynecology; PCP Neuromusculoskeletal Medicine & OMM; Visit Provider Obstetrics & Gynecology
PROC: 0UT9FZZ Resection of Uterus, Via Natural or Artificial Opening With Percutaneous Endoscopic Assistance (ICD-10-PCS; CPT 58150; principal; 2021-02-23 07:30)
PROC: 0UT90ZZ Resection of Uterus, Open Approach (ICD-10-PCS; CPT 58150; 2021-02-23 07:30)
DX: D25.1 Intramural leiomyoma of uterus (principal); D25.0 Submucous leiomyoma of uterus; D25.2 Subserosal leiomyoma of uterus; M79.7 Fibromyalgia; F41.0 Panic disorder [episodic paroxysmal anxiety]; F12.90 Cannabis use, unspecified, uncomplicated
CPT/HCPCS: 58150; 36415; 85025; 88307; J0131; J0690; J1100; J1200; J1885; J2001; J2250; J2310; J2405; J2704; J3010; J7620

== ENCOUNTER 2022-08-18 12:03 | Emergency (ER) | payer MEDICAID, SELFPAY ==
[2022-08-18 12:08] VITALS: BP 131/89; PULSE 80; RESP 18; TEMP 37.1; O2SAT 97
--- NOTE | 2022-08-18 12:15 | DI.CT_ITS ---
Exam(s) CT ABDOMEN PELVIS W EXAM: CT ABDOMEN PELVIS W CLINICAL HISTORY: RLQ pain. TECHNIQUE: Imaging Protocol: Axial computed tomography images with coronal and sagittal reformatted images were created and reviewed CONTRAST MATERIAL: Intravenous: Omnipaque 100cc Oral: None COMPARISON: No exams were available for comparison FINDINGS: VISUALIZED LUNG BASES: No nodules nor pleural effusions evident. ABDOMEN: There is no ascites. LIVER: There are no focal hepatic lesions evident . GALLBLADDER/BILIARY: No obvious gallbladder pathology. CBD is not dilated. PANCREAS: No evidence of pancreatic mass nor dilatation of the pancreatic duct. SPLEEN: Spleen is not enlarged. No obvious intrasplenic lesions. Splenic and portal veins are paten t. ADRENALS: There are no significant adrenal masses. KIDNEYS:No cysts evident. No solid renal masses. No calculi nor hydronephrosis.. ABDOMINAL AORTA: Abdominal aorta is not enlarged. LYMPH NODES:There is no retroperitoneal nor paraaortic adenopathy. ABDOMINAL WALL: No evidence of significant anterior abdominal wall nor inguinal hernia. GI: There is no evidence of bowel obstruction, free air, nor abscess. PELVIS: GI: No evidence of appendicitis.No evidence of sigmoid diverticulitis. LYMPH NODES: There is no intrapelvic nor inguinal adenopathy. REPRODUCTIVE: Uterus is surgically absent. No abnormal adnexal masses. URINARY BLADDER: No calculi nor obvious masses evident OSSEOUS: No significant osseous lesions. IMPRESSION: 1. Uterus is surgically absent. No abnormal pelvic masses nor free fluid. 2. No evidence of appendicitis, as per request. 3. No renal calculi nor obstruction of the urinary tracts. 4. No ascites. Report called by myself to ER provider. RADIATION DOSE DELIVERED: Total DLP DATA REPOSITORY: All CT scans at this facility are submitted to the National Radiology Data Registry (NRDR) Dose Index Registry (DIR) with the [employer] (ACR). RADIATION OPTIMIZATION: All CT scans at this facility use at least one of these dose optimization te chniques: automated exposure control; mA and/or kV adjustment per patient size (includes targeted exa ms where dose is matched to clinical indication); or iterative reconstruction.
[2022-08-18] MEDS: Ketorolac 30 MG/ML VIAL IVP (12:41)
[2022-08-18] MEDS: Normal Saline 1,000 ML 1000 ML IV (12:42)
[2022-08-18 12:46] LABS: Abs Immature Grans 0.14 10^3/uL (0.0-0.06); Absolute Basophil Count 0.05 10^3/uL (0.0-0.2); Absolute Eosinophil Count 0.22 10^3/uL (0.0-0.7); Absolute Lymphocyte Count 2.12 10^3/uL (1.2-3.4); Absolute Monocyte Count 0.55 10^3/uL (0.1-0.8); Absolute Neutrophil Count 4.83 10^3/uL (1.2-6.7); Basophils % 0.6; Eosinophils % 2.8; HCT 40.7 % (36.0-46.0); HGB 14.4 g/dL (11.2-15.7); Immature Grans % 1.8; Lymphocytes % 26.8; MCHC 35.4 % (32.0-36.0); MCV 93 fL (80-95); Platelet Count 283 10^3/uL (130-400); RBC 4.37 10^6/uL (3.93-5.22); RDW 11.8 % (11.7-14.6); RDW-SD 40.1 fL; WBC 7.91 10^3/uL (4.4-10.8)
[2022-08-18 12:48] LABS: Bilirubin Negative (Negative); Blood Trace-intact (Negative); Clarity Clear (Clear); Glucose Negative (Negative); Ketones Negative (Negative); Leukocyte Esterase Negative (Negative); Nitrite Negative (Negative); Urobilinogen 0.2 EU/dL (Up TO 0.2); pH 6.5 (5-8)
--- NOTE | 2022-08-18 12:51 | W.ED.GENAD ---
Discharge Plan Disposition Patient Disposition: Home Condition: Improving Discharge Details Clinical Impression: Abdominal pain Primary Care Provider: Alexandra Mtz ED Provider: Eb Ontiveros Home Meds and New Rx's Prescriptions: Continued escitalopram oxalate 20 mg tablet 10 mg PO DAILY Buspirone HCl 5 MG tablet 15 mg PO BID trazodone 50 MG tablet 50 mg PO HS PRN clonazepam 0.5 mg tablet 0.5 mg PO PRN PRN acetaminophen 500 MG tablet 1,000 mg PO PRN PRN gabapentin 300 mg Capsule 300 mg PO PRN PRN Discharge Instructions Instructions: Abdominal Pain (ED) Additional Instructions: At this time no emergent findings were noted to explain your abdominal pain. If you develop any new or significant worsening of symptoms please return to the emergency department for reassessment otherwise follow-up with your primary care provider if your symptoms have not fully resolved in the next week. It is recommended for the next 24 hours to have a clear liquid diet and then slowly advance your diet as tolerated by pain and discomfort. If you develop fever chills, persistent vomiting, or change in your condition please return to the emergency department Referrals: Alexandra Mtz, [employer] [Primary Care Provider] - 1 week (If not improving) Discharge Data Discharge Date/Time-TO BE ENTERED AT DEPARTURE: 08/18/22 15:33 Medical Decision Making Patient presenting to the emergency department for chief complaint of abdominal pain. Patient reports that in the middle the night she woke up with right lower quadrant abdominal pain. She states lack of appetite and some nausea denies all other symptoms fever chills chest pain shortness of breath. Physical exam shows tenderness to the right lower quadrant otherwise unremarkable exam. We will plan on checking labs and CT imaging. Patient does report a history of uterine fibroids and hysterectomy. Review of labs is unremarkable diagnostic with no emergent findings noted. CBC is unremarkable and shows no leukocytosis or shift, CMP shows again nondiagnostic findings with no emergent abnormalities, and normal lipase. Urine is also unremarkable for any acute signs of infection. CT imaging also shows no acute abdominal findings. Discussed work-up with no obvious emergent findings noted. Did further discuss with patient clear liquid diet for the next 24 hours and to eat slowly advance her diet as tolerated and to return for any new or worsening symptoms. After discussion of diagnosis and plan of care patient has no further needs, questions, or concerns and states clear understanding to return to the emergency department for any worsening symptoms. This documentation was generated using reportbraination system, please disregard any oddities of phrase or misspellings. Imaging Data Radiologic Study: Imaging: CT Scan Radiologist's impression: EXAM: CT ABDOMEN PELVIS W CLINICAL HISTORY: RLQ pain. TECHNIQUE: Imaging Protocol: Axial computed tomography images with coronal and sagittal reformatted images were created and reviewed CONTRAST MATERIAL: Intravenous: Omnipaque 100cc Oral: None COMPARISON: No exams were available for comparison FINDINGS: VISUALIZED LUNG BASES: No nodules nor pleural effusions evident. ABDOMEN: There is no ascites. LIVER: There are no focal hepatic lesions evident . GALLBLADDER/BILIARY: No obvious gallbladder pathology. CBD is not dilated. PANCREAS: No evidence of pancreatic mass nor dilatation of the pancreatic duct. SPLEEN: Spleen is not enlarged. No obvious intrasplenic lesions. Splenic and portal veins are patent. ADRENALS: There are no significant adrenal masses. KIDNEYS:No cysts evident. No solid renal masses. No calculi nor hydronephrosis.. ABDOMINAL AORTA: Abdominal aorta is not enlarged. LYMPH NODES:There is no retroperitoneal nor paraaortic adenopathy. ABDOMINAL WALL: No evidence of significant anterior abdominal wall nor inguinal hernia. GI: There is no evidence of bowel obstruction, free air, nor abscess. PELVIS: GI: No evidence of appendicitis.No evidence of sigmoid diverticulitis. LYMPH NODES: There is no intrapelvic nor inguinal adenopathy. REPRODUCTIVE: Uterus is surgically absent. No abnormal adnexal masses. URINARY BLADDER: No calculi nor obvious masses evident OSSEOUS: No significant osseous lesions. IMPRESSION: 1. Uterus is surgically absent. No abnormal pelvic masses nor free fluid. 2. No evidence of appendicitis, as per request. 3. No renal calculi nor obstruction of the urinary tracts. 4. No ascites. Lab Data Lab results reviewed: Yes I reviewed the patient's lab results. Sign Out No HPI General Mode of arrival: ambulatory. Date/Time Provider Initiated Documentation: 08/18/22 12:18. Limitations to Documentation: no limitations. Information obtained by: patient and RN notes reviewed. History of Present Illness 42 year old F presents to the emergency department with the chief complaint of RLQ pain , described as moderate, with intensity rated at 5. Quality is described as aching, Patient reports no radiation. Patient started experiencing this hour(s) (8) and it has been constant. No relieving factors improve symptom(s), No exacerbating factors reported . Patient notes loss of appetite. Patient did receive the following treatments prior to arrival, none Related Data Home Medications Medication Instructions Recorded Confirmed trazodone 50 mg tablet 50 mg PO HS PRN 07/26/16 08/18/22 Buspirone HCl 15 mg PO BID 10/22/17 08/18/22 acetaminophen 500 mg tablet 1,000 mg PO PRN PRN 02/19/18 08/18/22 escitalopram oxalate 20 mg tablet 10 mg PO DAILY 01/14/21 08/18/22 clonazepam 0.5 mg tablet 0.5 mg PO PRN PRN 02/15/21 08/18/22 gabapentin 300 mg capsule 300 mg PO PRN PRN 08/18/22 08/18/22 Allergies Allergy/AdvReac Type Severity Reaction Status Date / Time gluten Allergy Severe Other (See Verified 08/18/22 12:33 Comment) General Stated Complaint: Abd Prob BILLIE: 3 Review of Systems Constitutional Constitutional: Denies chills, Denies fever(s) and Reports poor appetite Cardiovascular Cardiovascular: Denies chest pain and Denies dyspnea Respiratory Respiratory: Denies cough and Denies dyspnea Gastrointestinal Gastrointestinal: Reports as per HPI, Reports abdominal pain, Denies melena, Denies change in bowel habits, Denies constipation, Denies diarrhea, Reports nausea and Denies vomiting Genitourinary Genitourinary: Denies hematuria, Denies urinary incontinence, Denies urinary hesitancy and Denies urinary urgency Integumentary/Breasts Skin/Breast: Denies rash PFSH All Active Problems (Updated 08/18/22 @ 15:16 by Eb Ontiveros NP) Abdominal pain (Acute) Cervical dystonia (Acute) S/P VIC (total abdominal hysterectomy) (Acute) VIC, B/L salpingectomy due to uterine fibroids 02/23/2021 Family history of breast cancer (Acute 10/22/17) Mother X 2, Dx at age 40 and age 55. Tested BRCA Neg Celiac disease (Acute 10/22/17) Anxiety (Acute 10/22/17) Fibromyalgia (Acute) Medical History Abnormal uterine bleeding Fibroid uterus Panic disorder per pt. Surgical History Hx of wisdom tooth extraction Family History Mother Breast cancer 40 Father No problems noted. Grandfather Diabetes paternal Maternal Aunt Thyroid disorder maternal Maternal Cousin Celiac disease Social History Smoking/Tobacco Use Status: Never Smoking risk assessment performed?: Yes Alcohol Intake: current Alcohol Intake frequency: a few times a month Alcohol type: wine Drug use: Daily Substance use type: marijuana Details: marijuana: today , alcohol: last night Current gender identity: female Do you feel safe at home: Yes Do you feel safe in your relationship?: Yes Additional Social history: at bedside Exam Const General: cooperative Orientation: alert, awake and oriented x3 Resp Effort & Inspection: normal respiratory effort and able to speak in complete sentences Auscultation: clear to auscultation bilaterally Cardio Rate: regular rate Rhythm: regular rhythm Heart Sounds: S1 normal and S2 normal GI Palpation: soft, no hepatosplenomegaly, not firm, no guarding, no masses, no pulsatile masses, not rigid, no splenomegaly and tender in the RLQ and at McBurney's point Auscultation: normal bowel sounds Back/Spine/Pelvis Back: no CVA tenderness Neuro General: patient alert, patient awake, patient oriented x3, gait normal and moves all extremities Course Vital Signs Vital signs: Vital Signs Temperature 37.1 C 08/18/22 12:08 Pulse 80 08/18/22 12:08 Respiratory Rate 18 08/18/22 12:08 Blood Pressure 131/89 08/18/22 12:08 Pulse Oximetry 97 08/18/22 12:08 Temperature 37.1 C 08/18/22 12:08 Temperature Source Temporal Artery Scan 08/18/22 12:08 Pulse 80 08/18/22 12:08 Respiratory Rate 18 08/18/22 12:08 Respiratory Effort Non-Labored 08/18/22 12:42 Blood Pressure 131/89 08/18/22 12:08 Blood Pressure Position Sitting 08/18/22 12:08 Pulse Oximetry 97 08/18/22 12:08 Oxygen Delivery Method Room Air 08/18/22 12:08 Oxygen Flow Rate 0 08/18/22 12:08 Pain Level 5 08/18/22 12:41 Lab/Test Results Lab/Test Results: Laboratory Tests Range/Units 08/18/22 08/18/22 12:13 12:25 WBC (4.4-10.8) 10^3/uL 7.91 RBC (3.93-5.22) 10^6/uL 4.37 Hgb (11.2-15.7) g/dL 14.4 Hct (36.0-46.0) % 40.7 MCV (80-95) fL 93 MCH (27.0-33.0) pg 33.0 MCHC (32.0-36.0) % 35.4 RDW (11.7-14.6) % 11.8 Plt Count (130-400) 10^3/uL 283 MPV (8.0-11.0) fL 10.0 Immature Gran % 1.8 Neutrophils % 61.0 Lymphocytes % 26.8 Monocytes % 7.0 Eosinophils % 2.8 Basophils % 0.6 Nucleated RBC % (0.0-0.3) % 0.0 Absolute Neutrophils (1.2-6.7) 10^3/uL 4.83 Absolute Lymphocytes (1.2-3.4) 10^3/uL 2.12 Absolute Monocytes (0.1-0.8) 10^3/uL 0.55 Absolute Eosinophils (0.0-0.7) 10^3/uL 0.22 Absolute Basophils (0.0-0.2) 10^3/uL 0.05 Urine Color (Yellow) Yellow Urine Clarity (Clear) Clear Urine pH (5-8) 6.5 Ur Specific [place] (1.005-1.025) 1.010 Urine Protein (Negative) mg/dL Negative Urine Ketones (Negative) mg/dL Negative Urine Blood (Negative) Trace-intact H Urine Nitrite (Negative) Negative Urine Bilirubin (Negative) Negative Urine Urobilinogen (Up TO 0.2) EU/dL 0.2 Ur Leukocyte Esterase (Negative) Negative Urine Glucose (Negative) mg/dL Negative PAWSS Have you Been Recently Intoxicated or Drunk Within the Last 30 days?: No Have you Ever Experienced Previous Episodes of Alcohol Withdrawal?: No Have you ever Experienced Withdrawal Seizures?: No Have you ever Experienced Delirium Tremens(DT)s?: No Have you ever undergone Alcohol Rehabilitation Treatment (i.e, inpt ot outpatient treatment programs)?: No Have you ever Experienced Blackouts?: No Have you ever Combined Alcohol with other Downers within the last 90 days?: No Have you ever Combined Alcohol with any other Substance of Abuse during the last 90 days?: No Positive Blood Alcohol level on Presentation? [PCS.BAL]: No Evidence of Increased Autonomic Activity (i.e. HR>120, tremor, sweating, agitation, nausea)?: No Result: 0
[2022-08-18 12:54] LABS: Bacteria Rare HPF (Negative); Casts Negative LPF (Negative); Crystals Negative HPF (Negative); Epithelial Cells Rare HPF (Negative); Mucus Negative (Negative); Other Cells Negative (Negative); RBC 0-2 HPF (0-2); WBC Negative HPF (0-5)
[2022-08-18 12:55] LABS: C & S Indicated? No
[2022-08-18 13:08] LABS: ALT 31 U/L (14-59); AST 14 U/L (15-37); Albumin 3.9 g/dL (3.4-5.0); Alkaline Phosphatase 83 U/L (46-116); Anion Gap 9.1 mmol/L (3-11); BUN 11 mg/dL (7-18); Bilirubin, Total 0.4 mg/dL (0.2-1.0); CO2 25.9 mmol/L (21.0-32.0); CREATININE 0.8 mg/dL (0.55-1.02); Calcium 8.6 mg/dL (8.5-10.1); Chloride 102 mmol/L (98-107); Estimated GFR 95.46 (mL/min/1.73m2); Glucose 98 mg/dL (74-106); Lipase 94 U/L (73-393); Magnesium 1.9 mg/dL (1.8-2.4); Sodium 137 mmol/L (136-145); Total Protein 7.1 g/dL (6.4-8.2)
[2022-08-18] MEDS: Omnipaque 350 MG/ML 100 ML BTL IJ (13:59)
== END 2022-08-18 15:33 | disposition home or self-care (01) ==
PROVIDERS: Emergency Provider Nurse Practitioner Family; PCP Registered Nurse
DX: R10.31 Right lower quadrant pain (principal); R11.0 Nausea
CPT/HCPCS: 80053; 83690; 96361; 96374; 99285; 74177; 81003; 81015; 83735; 85025; 99284; J1885; J3490